=== PATIENT | female | born 1995 | race Caucasian/White ===

== ENCOUNTER 2017-03-03 16:48 | Emergency (ER) | payer OTHER ==
[~2017-03-03] VITALS: Ht 160 cm; Wt 81.6 kg
[~2017-03-03 16:48] MED LIST: EAR DROPS
[2017-03-03 17:32] LABS: URINE SOURCE CLEAN CATCH
[2017-03-03 17:58] LABS: URINE APPEARANCE TURBID; URINE BILIRUBIN NEG (NEG); URINE BLOOD 2+ (NEG); URINE COLOR YELLOW; URINE GLUCOSE NEG (NEG); URINE KETONE NEG (NEG); URINE LEUKOCYTE ESTERASE 3+ (NEG); URINE NITRATE NEG (NEG); URINE PROTEIN 1+ (NEG); URINE SPECIFIC GRAVITY 1.014 (1.003-1.035)
[2017-03-03 18:00] LABS: CULTURE INDICATED? YES; URBCS1 AUWI 50-100 /[HPF] (0-2); URINE BACTERIA AUWI 1+ (NEGATIVE); URINE SQUAMOUS EPITHELIAL CELL OCC /[HPF]; UWBCS1 AUWI INNUM (0-5)
[2017-03-03 18:01] LABS: U HYALINE CASTS AUWI 0-2 /[LPF]
[2017-03-06 16:57] LABS: CHLAMYDIA TRACH Not Detected (Not Detected); N GONOR Not Detected (Not Detected)
== END 2017-03-03 18:55 | disposition home or self-care (01) ==
LOC: CFTX 16:48 → CED 16:48 → CFTX 18:19
PROVIDERS: Nurse Practitioner
DX: N30.00 Acute cystitis without hematuria (principal); F17.210 Nicotine dependence, cigarettes, uncomplicated; Z88.0 Allergy status to penicillin
CPT/HCPCS: 81003; 84703; 87086; 87088; 87186; 87491; 87591; 87808; 87905; 99283